=== PATIENT | female | born 1995 | race African-American/Black ===

== ENCOUNTER 2020-11-24 11:42 | Emergency (ER) | payer MEDICAID ==
[~2020-11-24] VITALS: Ht 160 cm; Wt 78.0 kg
[2020-11-24 12:51] LABS: CLARITY URINE CLOUDY (CLEAR); COLOR URINE YELLOW (YELLOW); KETONES URINE TRACE (NEGATIVE); LEUKOCYTE ESTERASE URINE 1+ (NEGATIVE); NITRITE URINE NEGATIVE (NEGATIVE); OCCULT BLOOD URINE NEGATIVE (NEGATIVE); PROTEIN URINE TRACE (NEGATIVE); SPECIFIC GRAVITY URINE 1.029 (1.005-1.030); UROBILINOGEN URINE 0.2 E.U./dL (0.2-1.0)
[2020-11-24] MEDS ORDERED: NITR-87 MT (13:25)
[2020-11-24] MEDS ORDERED: IBUPROFEN 400MG TABLET PO ONE (13:30)
[2020-11-24 13:57] VITALS: BP 138/85
== END 2020-11-24 14:00 | disposition home or self-care (01) ==
LOC: ER 11:42
DX: G43.909 Migraine, unspecified, not intractable, without status migrainosus (principal); N93.8 Other specified abnormal uterine and vaginal bleeding
CPT/HCPCS: 81003; 81025; 99283

== ENCOUNTER 2021-11-08 17:34 | Emergency (ER) | payer MEDICAID ==
[~2021-11-08] VITALS: Ht 160 cm; Wt 81.0 kg
[~2021-11-08 17:34] MED LIST: NITR-87 MT
[2021-11-08 18:51] LABS: CLARITY URINE CLOUDY (CLEAR); COLOR URINE YELLOW (YELLOW); KETONES URINE TRACE (NEGATIVE); LEUKOCYTE ESTERASE URINE 2+ (NEGATIVE); NITRITE URINE NEGATIVE (NEGATIVE); OCCULT BLOOD URINE NEGATIVE (NEGATIVE); PROTEIN URINE NEGATIVE (NEGATIVE); SPECIFIC GRAVITY URINE 1.024 (1.005-1.030); UROBILINOGEN URINE 0.2 E.U./dL (0.2-1.0)
[2021-11-08 18:53] LABS: UCG SCREEN NEGATIVE
[2021-11-08] MEDS ORDERED: CEPH500C2 MT (21:22)
[2021-11-08] MEDS ORDERED: FLUC150T5 MT (21:22)
[2021-11-08 22:21] VITALS: BP 125/80
[2021-11-12 04:09] LABS: NEISSERIA GONORRHOEAE NAA Negative (Negative)
== END 2021-11-08 22:23 | disposition home or self-care (01) ==
LOC: ER 17:34
DX: B37.49 Other urogenital candidiasis (principal)
CPT/HCPCS: 76830; 76856; 81003; 81025; 87210; 87491; 87591; 99284; Z7610

== ENCOUNTER 2021-11-17 18:39 | Emergency (ER) | payer BC, MEDICAID ==
[~2021-11-17] VITALS: Ht 160 cm; Wt 85.0 kg
[~2021-11-17 18:39] MED LIST changes: +CEPH500C2 MT; +FLUC150T5 MT
[2021-11-17] MEDS ORDERED: FAMOTIDINE 20MG TABLET PO ONE (19:45)
[2021-11-17] MEDS ORDERED: MAGNESIUM/ALUMINUM HYDROXIDE/SIMETHICONE 30ML UDC PO ONE (19:45)
[2021-11-17 20:31] LABS: CLARITY URINE CLOUDY (CLEAR); COLOR URINE YELLOW (YELLOW); KETONES URINE NEGATIVE (NEGATIVE); LEUKOCYTE ESTERASE URINE 1+ (NEGATIVE); NITRITE URINE NEGATIVE (NEGATIVE); OCCULT BLOOD URINE TRACE (NEGATIVE); PH URINE 8.5 (4.5-8.0); PROTEIN URINE NEGATIVE (NEGATIVE); SPECIFIC GRAVITY URINE 1.015 (1.005-1.030); UROBILINOGEN URINE 0.2 E.U./dL (0.2-1.0)
[2021-11-17 20:47] LABS: UCG SCREEN NEGATIVE
[2021-11-17] MEDS ORDERED: METR70GE17 VG (22:42)
[2021-11-17] MEDS ORDERED: SULF1TAB48 MT (22:42)
[2021-11-17 22:52] VITALS: BP 114/70
== END 2021-11-17 22:53 | disposition home or self-care (01) ==
LOC: ER 18:39
DX: N76.0 Acute vaginitis (principal); N39.0 Urinary tract infection, site not specified; M79.18 Myalgia, other site; G43.909 Migraine, unspecified, not intractable, without status migrainosus; Z79.899 Other long term (current) drug therapy
CPT/HCPCS: 71045; 81003; 81025; 87210; 87491; 87591; 99284; Z7610

== ENCOUNTER 2021-12-18 17:52 | Emergency (ER) | payer BC ==
[~2021-12-18] VITALS: Ht 160 cm; Wt 83.0 kg
[~2021-12-18 17:52] MED LIST changes: +METR70GE17 VG; +SULF1TAB48 MT
[2021-12-18] MEDS ORDERED: SODIUM CHLORIDE 0.9% 1,000 ML IV ONE (20:15)
[2021-12-18 21:11] LABS: BASOPHILS % 0.4 % (0.0-2.0); EOSINOPHILS % 0.5 % (0.0-5.0); HEMATOCRIT. 41.3 % (36.0-48.0); HEMOGLOBIN. 13.8 g/dL (12.0-16.0); LYMPHOCYTES % 19.8 % (20.0-50.0); MEAN CORPUSCULAR HEMOGLOBIN 25.8 pg (28.0-32.0); MEAN PLATELET VOLUME 7.6 fl (7.4-10.4); MONOCYTES % 4.5 % (2.0-8.0); NEUTROPHILS % 74.8 % (40.0-76.0); PLATELET 271 x1000/uL (130-400); RED BLOOD CELL COUNT 5.36 mill/uL (4.2-5.4); RED CELL DISTRIBUTION WIDTH 14.9 % (11.6-14.6)
[2021-12-18 21:19] LABS: CHLORIDE 104 mEq/L (98-107)
[2021-12-18 21:38] LABS: HCG SCREEN NEGATIVE
[2021-12-18 22:00] VITALS: BP 124/80
[2021-12-18 22:34] LABS: CLARITY URINE CLOUDY (CLEAR); COLOR URINE YELLOW (YELLOW); KETONES URINE NEGATIVE (NEGATIVE); LEUKOCYTE ESTERASE URINE 3+ (NEGATIVE); NITRITE URINE NEGATIVE (NEGATIVE); OCCULT BLOOD URINE NEGATIVE (NEGATIVE); PH URINE 5.5 (4.5-8.0); PROTEIN URINE NEGATIVE (NEGATIVE); SPECIFIC GRAVITY URINE 1.007 (1.005-1.030); UROBILINOGEN URINE 0.2 E.U./dL (0.2-1.0)
[2021-12-18] MEDS ORDERED: NITR-87 MT (23:08)
[2021-12-18] MEDS ORDERED: NITROFURANTOIN 100MG M/M CAPSULE PO ONE (23:15)
== END 2021-12-18 23:52 | disposition home or self-care (01) ==
LOC: ER 18:52
DX: N39.0 Urinary tract infection, site not specified (principal); R53.1 Weakness; Z20.822 Contact with and (suspected) exposure to COVID-19; R53.83 Other fatigue
CPT/HCPCS: 36415; 80053; 81003; 81025; 84703; 85025; 87426; 96360; 99283; J7030

== ENCOUNTER 2022-08-06 13:23 | Emergency (ER) | payer BC ==
[~2022-08-06] VITALS: Ht 160 cm; Wt 85.0 kg
[~2022-08-06 13:23] MED LIST changes: +FLUC150T46 MT; -FLUC150T5 MT; +ONDA4TAB50 MT
[2022-08-06 14:47] VITALS: BP 125/86
[2022-08-06] MEDS ORDERED: ACETAMINOPHEN 325MG TABLET PO STA (16:58)
[2022-08-06 18:05] LABS: CLARITY URINE CLOUDY (CLEAR); COLOR URINE DARK YELLOW (YELLOW); KETONES URINE TRACE (NEGATIVE); LEUKOCYTE ESTERASE URINE 1+ (NEGATIVE); NITRITE URINE NEGATIVE (NEGATIVE); OCCULT BLOOD URINE 3+ (NEGATIVE); PROTEIN URINE 2+ (NEGATIVE); SPECIFIC GRAVITY URINE 1.021 (1.005-1.030)
[2022-08-06 19:17] LABS: BASOPHILS % 0.5 % (0.0-2.0); EOSINOPHILS % 2.4 % (0.0-5.0); HEMATOCRIT. 42.8 % (36.0-48.0); HEMOGLOBIN. 14.4 g/dL (12.0-16.0); LYMPHOCYTES % 21.6 % (20.0-50.0); MEAN CORPUSCULAR HEMOGLOBIN 26.8 pg (28.0-32.0); MEAN CORPUSCULAR VOLUME 79.5 fL (81.0-99.0); MEAN PLATELET VOLUME 7.6 fl (7.4-10.4); MONOCYTES % 5.1 % (2.0-8.0); NEUTROPHILS % 70.4 % (40.0-76.0); PLATELET 267 x1000/uL (130-400); RED BLOOD CELL COUNT 5.38 mill/uL (4.2-5.4)
[2022-08-06 19:35] LABS: CHLORIDE 105 mEq/L (98-107)
[2022-08-06 20:04] LABS: HCG SCREEN NEGATIVE
[2022-08-06] MEDS ORDERED: CEPH500C2 MT (20:11)
== END 2022-08-06 21:06 | disposition home or self-care (01) ==
LOC: ER 13:23
DX: N39.0 Urinary tract infection, site not specified (principal)
CPT/HCPCS: 36415; 80053; 81003; 81025; 84703; 85025; 99283

== ENCOUNTER 2022-12-28 14:42 | Emergency (ER) | payer BC ==
[~2022-12-28] VITALS: Ht 162.6 cm; Wt 80.0 kg
[2022-12-28 16:07] LABS: HCG SCREEN NEGATIVE
[2022-12-28 18:00] VITALS: BP 120/80
[2022-12-28] MEDS ORDERED: ACETAMINOPHEN 325MG TABLET PO ONE (18:15)
[2022-12-28 18:35] LABS: CLARITY URINE CLOUDY (CLEAR); COLOR URINE YELLOW (YELLOW); KETONES URINE TRACE (NEGATIVE); LEUKOCYTE ESTERASE URINE 1+ (NEGATIVE); NITRITE URINE NEGATIVE (NEGATIVE); OCCULT BLOOD URINE NEGATIVE (NEGATIVE); PH URINE 5.5 (4.5-8.0); PROTEIN URINE 1+ (NEGATIVE); SPECIFIC GRAVITY URINE 1.027 (1.005-1.030); UROBILINOGEN URINE 0.2 E.U./dL (0.2-1.0)
[2022-12-28 18:39] LABS: BASOPHILS % 0.3 % (0.0-2.0); HEMATOCRIT. 40.4 % (36.0-48.0); HEMOGLOBIN. 13.9 g/dL (12.0-16.0); LYMPHOCYTES % 22.2 % (20.0-50.0); MEAN CORPUSCULAR VOLUME 78.1 fL (81.0-99.0); MEAN PLATELET VOLUME 7.4 fl (7.4-10.4); MONOCYTES % 8.1 % (2.0-8.0); NEUTROPHILS % 66.4 % (40.0-76.0); PLATELET 247 x1000/uL (130-400); RED BLOOD CELL COUNT 5.17 mill/uL (4.2-5.4); RED CELL DISTRIBUTION WIDTH 14.4 % (11.6-14.6)
[2022-12-28 18:48] LABS: CHLORIDE 106 mEq/L (98-107)
[2022-12-28 18:56] LABS: B-HCG QUANTITATIVE < 1 mIU/mL (<3)
[2022-12-28] MEDS ORDERED: CEPH500C2 MT (19:32)
== END 2022-12-28 19:38 | disposition home or self-care (01) ==
LOC: ER 14:44
DX: N39.0 Urinary tract infection, site not specified (principal)
CPT/HCPCS: 36415; 76830; 76856; 80053; 81003; 81025; 84702; 84703; 85025; 86850; 86900; 99284